=== PATIENT | male | born 1960 | race Caucasian/White ===

== ENCOUNTER 2016-06-09 07:47 | Outpatient (CLI) | payer OTHER, MEDICARE ==
--- NOTE | 2016-06-09 09:13 | RAD ---
TWO VIEW CHEST: Comparison: 10-08-15 Clinical history: Pneumonia. FINDINGS: No lobar consolidation, effusion, or pneumothorax. There is mild linear opacification of the right perihilar region. Cardiac silhouette is within normal limits in size. IMPRESSION: No lobar consolidation. Linear density of the right perihilar region. This could relate to an area of parenchymal volume loss or superimposition of structures. POS: [facility]
== END 2016-06-09 07:48 | disposition home or self-care (01) ==
LOC: MADRAD 07:47
PROVIDERS: ATTEND Family Medicine
DX: J18.9 Pneumonia, unspecified organism (principal)
CPT/HCPCS: 71020

== ENCOUNTER 2016-07-12 08:24 | Outpatient (CLI) | payer OTHER, MEDICARE ==
[2016-07-12] MEDS ORDERED: Iopamidol 370 76% 100 ML VIAL ONE (09:13)
--- NOTE | 2016-07-12 11:31 | CT ---
CT OF ABDOMEN AND PELVIS PERFORMED WITH INTRAVENOUS CONTRAST ENHANCEMENT: HISTORY: Abdominal pain and weight loss. COMPARISON: A CT of the chest that was performed 09/12/15. The lung bases show some emphysematous-type change. Small hypodensities within the dome of the live r most likely represent cysts. There are calcified liver granulomas also noted. The spleen is with in normal limits of size. The liver does show a suggestion of some fatty change. The pancreas and gallbladder regions are unremarkable. Right and left adrenal glands and right and left kidneys are normal in size. There is no significan t periaortic or mesenteric adenopathy noted. CT OF PELVIS PERFORMED WITH CONTRAST ENHANCEMENT: No evidence of adenopathy, mass, or free fluid. No inflammatory process. The appendix appears unre markable. It is retrocecal in location. Prostate calcifications are present. There are arthritic changes of the spine. Vertebroplasty changes of L4 are seen. IMPRESSION: 1. Mild fatty change of the liver. Small hypodensities within the liver are statistically most lik corwin small cysts. 2. Vertebroplasty changes of L4. POS: [facility]
== END 2016-07-12 08:25 | disposition home or self-care (01) ==
LOC: MADCT 08:24
PROVIDERS: ATTEND Internal Medicine Gastroenterology
DX: K52.9 Noninfective gastroenteritis and colitis, unspecified (principal); R63.4 Abnormal weight loss; R93.8 Abnormal findings on diagnostic imaging of other specified body structures; K29.70 Gastritis, unspecified, without bleeding
CPT/HCPCS: 74177

== ENCOUNTER 2016-09-06 20:56 | Emergency (ER) | payer OTHER, MEDICARE ==
--- NOTE | 2016-09-06 22:00 | RAD ---
CHEST TWO VIEWS: 09/06/16 HISTORY: Cough. Heart size and mediastinum are within normal limits. The lungs are clear of infiltrates. Lungs appea r mildly hyperexpanded. IMPRESSION: No acute intrathoracic disease. POS: [facility]
== END 2016-09-06 22:35 | disposition home or self-care (01) ==
LOC: MADERS 20:56
DX: J40 Bronchitis, not specified as acute or chronic (principal); E78.5 Hyperlipidemia, unspecified; I10 Essential (primary) hypertension; F17.210 Nicotine dependence, cigarettes, uncomplicated; F17.220 Nicotine dependence, chewing tobacco, uncomplicated
CPT/HCPCS: 71020

== ENCOUNTER 2017-06-22 00:43 | Emergency (ER) | payer OTHER, MEDICARE ==
[2017-06-22] MEDS ORDERED: Sodium Chloride Irrig Solution 250 ML BOT ONE (07:17)
== END 2017-06-22 01:50 | disposition home or self-care (01) ==
LOC: MADERS 00:43
DX: L76.22 Postprocedural hemorrhage of skin and subcutaneous tissue following other procedure (principal); E78.5 Hyperlipidemia, unspecified; G43.909 Migraine, unspecified, not intractable, without status migrainosus; I10 Essential (primary) hypertension; F17.210 Nicotine dependence, cigarettes, uncomplicated; Z79.899 Other long term (current) drug therapy; Z79.82 Long term (current) use of aspirin; Z86.73 Personal history of transient ischemic attack (TIA), and cerebral infarction without residual deficits
CPT/HCPCS: 12001

== ENCOUNTER 2018-02-19 14:38 | Emergency (ER) | payer MEDICARE, OTHER | END 2018-02-19 15:55 | disposition home or self-care (01) | LOC: MADERS 14:38 | DX: S61.011A Laceration without foreign body of right thumb without damage to nail, initial encounter (principal); I10 Essential (primary) hypertension; Z86.73 Personal history of transient ischemic attack (TIA), and cerebral infarction without residual deficits; E78.5 Hyperlipidemia, unspecified; G43.909 Migraine, unspecified, not intractable, without status migrainosus; F17.210 Nicotine dependence, cigarettes, uncomplicated; Z79.899 Other long term (current) drug therapy; Z79.82 Long term (current) use of aspirin; W26.8XXA Contact with other sharp object(s), not elsewhere classified, initial encounter | CPT/HCPCS: 12001; 99406 ==

== ENCOUNTER 2018-07-11 17:25 | Outpatient (CLI) | payer OTHER, MEDICARE ==
--- NOTE | 2018-07-11 18:10 | RAD ---
TWO VIEW CHEST: 07/11/18 HISTORY: Bronchitis. COPD. Lungs are clear. Heart and mediastinum are unremarkable. Vascular markings normal. IMPRESSION: Unremarkable chest. POS: [facility]
== END 2018-07-11 17:26 | disposition home or self-care (01) ==
LOC: MADRAD 17:25
PROVIDERS: ATTEND Family Medicine
DX: J20.9 Acute bronchitis, unspecified (principal)
CPT/HCPCS: 71046

== ENCOUNTER 2018-09-29 18:22 | Emergency (ER) | payer OTHER, MEDICARE ==
[~2018-09-29 18:22] MED LIST: Iopamidol 370 76% 200 ML VIAL ONE; Sodium Chloride 0.9% 100 ML BAG ONE
[2018-09-29 18:49] LABS: #Basophils 0.2 thou/uL (0.0-0.2); #Eosinphils 0.4 thou/uL (0.0-0.7); #Lymphocytes 3.8 thou/uL (1.20-3.40); #Monocytes 0.9 thou/uL (0.11-0.59); #Neutrophils 3.8 thou/uL (1.40-6.50); %Basophils 2.1 % (0.0-1.0); %Eosinophils 4.3 % (0.0-10.0); %Lymphocytes 41.8 % (21.0-51.0); %Monocytes 9.7 % (0.0-10.0); %Neutrophils 42.1 % (42.0-75.0); Hemoglobin 13.9 g/dL (14.0-18.0); Mean Corpuscular HGB CONC 32.3 g/dL (32.0-36.0); Mean Corpuscular Hemoglobin 31.5 pg (27.0-31.0); Mean Corpuscular Volume 97.6 fL (78.0-98.0); Platelet Count 314 thou/uL (130-400); Red Blood Cell (RBC) Count 4.42 mill/uL (4.70-6.10); White Blood Cell (WBC) Count 9.1 thou/uL (4.8-10.8)
--- NOTE | 2018-09-29 18:51 | RAD ---
EXAM: CHEST ONE VIEW HISTORY: Chest pain COMPARISON: 10/24/2017 FINDINGS: The cardiac silhouette and pulmonary vasculature is within normal limits. Lungs remain expanded and c lear. The osseous structures are intact. Vascular calcifications are again seen in the thoracic aorta. IMPRESSION: No acute cardiopulmonary process.
[2018-09-29 19:03] LABS: ALT (SGPT) 14 U/L (8-55); AST (SGOT) 23 U/L (5-34); Alkaline Phosphatase 44 U/L (40-150); Anion Gap 14 mmol/L (10-20); BUN (Urea Nitrogen) 15 mg/dL (8.4-25.7); Bilirubin, Total 0.3 mg/dL (0.2-1.2); Calc. Creatinine Clearance 0 mL/min (70-130); Calcium 9.4 mg/dL (7.8-10.44); Carbon Dioxide 27 mmol/L (22-29); Chloride 103 mmol/L (98-107); Estimated GFR-MDRD Greater than 90; Glucose 83 mg/dL (70-105); Potassium 4.1 mmol/L (3.5-5.1); Sodium 140 mmol/L (136-145)
[2018-09-29] MEDS ORDERED: Nitroglycerin 2% Ointment 1 INCH/1 GM Packet ONE (19:25)
--- NOTE | 2018-09-29 19:58 | CT ---
CTA CHEST WITH CONTRAST: 09/29/18 Multiple axial tomograms obtained through the chest following a pulmonary angio protocol with multipl laisha reconstruction and 3D post processing. INDICATIONS: Chest pain. Shortness of breath. COMPARISON: CT angio of chest dated 09/12/15. FINDINGS: Pulmonary arteries show adequate enhancement. No evidence of pulmonary embolus identified. Thoracic a andres is unremarkable. No evidence of dissection. The lung celaya show chronic lung parenchymal gutierrez e. There are early bullous changes in the lung bases and hyperexpansion. There is no evidence of infi ltrate. There is a nodular density in the posterior right upper lobe adjacent to the pleural surface measuring approximately 6 mm. There is also a 5 to 6 mm nodule in the anterior right mid lung which i s stable from prior exam. This is a stable nodule when compared to the prior study. Review of the mediastinum again shows nonspecific mediastinal and hilar adenopathy. There are calcifi ed right hilar lymph nodes. The adenopathy appears stable from prior exam. Images through the upper abdomen unremarkable. IMPRESSION: 1. No evidence of pulmonary embolus. 2. There are chronic lung parenchymal changes. No evidence of acute infiltrate. Pulmonary nodule s are stable. POS: [facility]
[2018-09-29] MEDS ORDERED: Labetalol HCl 100 MG/20 ML VIAL ONE (20:31)
== END 2018-09-29 21:04 | disposition short-term general hospital (02) ==
LOC: MADERS 18:22
DX: I20.0 Unstable angina (principal); I10 Essential (primary) hypertension; F17.210 Nicotine dependence, cigarettes, uncomplicated; E78.5 Hyperlipidemia, unspecified; Z86.73 Personal history of transient ischemic attack (TIA), and cerebral infarction without residual deficits; G43.909 Migraine, unspecified, not intractable, without status migrainosus; Z79.899 Other long term (current) drug therapy; Z79.82 Long term (current) use of aspirin
CPT/HCPCS: 71045; 71275; 80053; 83880; 84484; 85025; 93005; 96374; J3490

== ENCOUNTER 2018-10-11 07:48 | Outpatient (CLI) | payer OTHER, MEDICARE ==
[2018-10-11 08:19] LABS: Cardiac Risk 2.5 (Less than 4.5)
== END 2018-10-11 07:49 | disposition home or self-care (01) ==
LOC: MADLAB 07:48
PROVIDERS: ATTEND Internal Medicine Cardiovascular Disease
DX: R07.9 Chest pain, unspecified (principal); E78.00 Pure hypercholesterolemia, unspecified
CPT/HCPCS: 36415; 80061

== ENCOUNTER 2019-02-21 14:31 | Outpatient (CLI) | payer OTHER, MEDICARE ==
[2019-02-21 15:03] LABS: Anion Gap 16 mmol/L (10-20); BUN (Urea Nitrogen) 6 mg/dL (8.4-25.7); Calc. Creatinine Clearance 0 mL/min (70-130); Calcium 9.5 mg/dL (7.8-10.44); Carbon Dioxide 25 mmol/L (22-29); Chloride 98 mmol/L (98-107); Estimated GFR-MDRD Greater than 90; Glucose 85 mg/dL (70-105); Potassium 4.5 mmol/L (3.5-5.1); Sodium 134 mmol/L (136-145)
== END 2019-02-21 14:32 | disposition home or self-care (01) ==
LOC: MADLABBHPM 14:31
PROVIDERS: ATTEND Family Medicine
DX: E87.5 Hyperkalemia (principal)
CPT/HCPCS: 36415; 80048

== ENCOUNTER 2019-07-23 17:16 | Emergency (ER) | payer OTHER, MEDICARE ==
[2019-07-23 18:39] LABS: #Basophils 0.2 thou/uL (0.0-0.2); #Eosinphils 0.4 thou/uL (0.0-0.7); #Monocytes 0.9 thou/uL (0.11-0.59); #Neutrophils 2.9 thou/uL (1.40-6.50); %Basophils 2.1 % (0.0-1.0); %Monocytes 12.4 % (0.0-10.0); %Neutrophils 39.5 % (42.0-75.0); Hemoglobin 14.1 g/dL (14.0-18.0); Mean Corpuscular HGB CONC 31.7 g/dL (32.0-36.0); Mean Corpuscular Hemoglobin 31.3 pg (27.0-31.0); Mean Corpuscular Volume 98.8 fL (78.0-98.0); Mean Platelet Volume 6.8 fL (7.4-10.4); Platelet Count 271 thou/uL (130-400); White Blood Cell (WBC) Count 7.4 thou/uL (4.8-10.8)
[2019-07-23 18:53] LABS: ALT (SGPT) 24 U/L (8-55); AST (SGOT) 29 U/L (5-34); Albumin 3.9 g/dL (3.5-5.0); Alkaline Phosphatase 50 U/L (40-110); Anion Gap 13 mmol/L (10-20); BUN (Urea Nitrogen) 9 mg/dL (8.4-25.7); Bilirubin, Total Less than 0.2 mg/dL (0.2-1.2); Calc. Creatinine Clearance 0 mL/min (70-130); Calcium 9.1 mg/dL (7.8-10.44); Carbon Dioxide 27 mmol/L (22-29); Chloride 103 mmol/L (98-107); Estimated GFR-MDRD Greater than 90; Globulin 2.9 g/dL (2.4-3.5); Glucose 93 mg/dL (70-105); Potassium 4.2 mmol/L (3.5-5.1); Protein, Total 6.8 g/dL (6.0-8.3); Sodium 139 mmol/L (136-145)
--- NOTE | 2019-07-23 19:10 | RAD ---
CHEST ONE VIEW: 07/23/19 HISTORY: Cough. COMPARISON: Radiograph . FINDINGS: Mild background lung hyperinflation. Small scattered pulmonary nodules. No pneumothorax. No effusion. No acute osseous abnormality. IMPRESSION: 1. No acute intrathoracic abnormality. 2. Mild background emphysema. POS: [facility]
== END 2019-07-23 20:00 | disposition home or self-care (01) ==
LOC: MADERS 17:16
DX: J06.9 Acute upper respiratory infection, unspecified (principal); R06.2 Wheezing; E78.5 Hyperlipidemia, unspecified; I10 Essential (primary) hypertension; F17.210 Nicotine dependence, cigarettes, uncomplicated; G70.00 Myasthenia gravis without (acute) exacerbation; Z86.73 Personal history of transient ischemic attack (TIA), and cerebral infarction without residual deficits
CPT/HCPCS: 36415; 71045; 80053; 83880; 84484; 85025; 87804; 93005

== ENCOUNTER 2020-09-10 07:56 | Outpatient (CLI) | payer OTHER, MEDICARE | END 2020-09-10 07:57 | disposition home or self-care (01) | LOC: MADRAD 07:56 | PROVIDERS: ATTEND Family Medicine | DX: M77.8 Other enthesopathies, not elsewhere classified (principal) ==

== ENCOUNTER 2020-10-21 08:52 | Emergency (ER) | payer OTHER, MEDICARE ==
[2020-10-21 09:32] LABS: #Basophils 0.2 thou/uL (0.0-0.2); #Eosinphils 0.1 thou/uL (0.0-0.7); #Lymphocytes 2.2 thou/uL (1.20-3.40); #Monocytes 0.8 thou/uL (0.11-0.59); #Neutrophils 4.5 thou/uL (1.40-6.50); %Basophils 2.4 % (0.0-1.0); %Lymphocytes 28.8 % (21.0-51.0); %Monocytes 9.7 % (0.0-10.0); %Neutrophils 58.2 % (42.0-75.0); Hemoglobin 15.7 g/dL (14.0-18.0); Mean Corpuscular HGB CONC 31.7 g/dL (32.0-36.0); Mean Corpuscular Hemoglobin 32.4 pg (27.0-31.0); Mean Corpuscular Volume 102.3 fL (78.0-98.0); Mean Platelet Volume 7.2 fL (7.4-10.4); Platelet Count 249 thou/uL (130-400); RBC Distribution Width 11.2 % (11.5-14.5); Red Blood Cell (RBC) Count 4.85 mill/uL (4.70-6.10); White Blood Cell (WBC) Count 7.7 thou/uL (4.8-10.8)
[2020-10-21] MEDS ORDERED: Morphine 2 MG/ML VIAL ONE (09:34)
[2020-10-21] MEDS ORDERED: Nitroglycerin 2% Ointment 1 INCH/1 GM Packet ONE (09:35)
[2020-10-21] MEDS ORDERED: Sodium Chloride 0.9% 1,000 ML ONE ×2 (09:35→10:39)
[2020-10-21] MEDS ORDERED: Famotidine In NaCl 20 mg/50 ml Premix Bag ONE (09:35)
[2020-10-21] MEDS ORDERED: Aspirin Chewable 81 MG TAB ONE (09:35)
[2020-10-21] MEDS ORDERED: Promethazine HCl 25 MG/ML VIAL ONE (09:35)
[2020-10-21 09:46] LABS: ALT (SGPT) 28 U/L (8-55); AST (SGOT) 39 U/L (5-34); Albumin 4.2 g/dL (3.4-4.8); Alkaline Phosphatase 53 U/L (40-110); Anion Gap 17 mmol/L (10-20); BUN (Urea Nitrogen) 6 mg/dL (8.4-25.7); Bilirubin, Total 0.5 mg/dL (0.2-1.2); Calc. Creatinine Clearance 0 mL/min (70-130); Calcium 9.5 mg/dL (7.8-10.44); Carbon Dioxide 25 mmol/L (23-31); Chloride 98 mmol/L (98-107); Globulin 3.1 g/dL (2.4-3.5); Glucose 97 mg/dL (80-115); Lipase 15 U/L (8-78); Potassium 4.9 mmol/L (3.5-5.1); Protein, Total 7.3 g/dL (5.8-8.1); Sodium 135 mmol/L (136-145)
[2020-10-21] MEDS ORDERED: Iopamidol 370 76% 125 ML VIAL FS ONE (11:58)
== END 2020-10-21 11:25 | disposition home or self-care (01) ==
LOC: MADERS 08:52
DX: R07.81 Pleurodynia (principal); R07.89 Other chest pain; E78.5 Hyperlipidemia, unspecified; G43.809 Other migraine, not intractable, without status migrainosus; F17.210 Nicotine dependence, cigarettes, uncomplicated; Z86.73 Personal history of transient ischemic attack (TIA), and cerebral infarction without residual deficits; Z79.82 Long term (current) use of aspirin; Z79.899 Other long term (current) drug therapy
CPT/HCPCS: 71045; 71275; 80053; 83690; 84484; 85025; 85379; 93005; 96365; 96368; 96375; J2270; J2550; J7050; Q9967

== ENCOUNTER 2020-11-02 09:17 | Outpatient (CLI) | payer OTHER, MEDICARE | END 2020-11-02 09:18 | disposition home or self-care (01) | LOC: MADULT 09:17 | PROVIDERS: ATTEND Family Medicine | DX: R10.11 Right upper quadrant pain (principal); K76.0 Fatty (change of) liver, not elsewhere classified | CPT/HCPCS: 76705 ==

== ENCOUNTER 2021-12-14 05:39 | Outpatient (CLI) | payer BC, MEDICARE | END 2021-12-14 05:40 | disposition home or self-care (01) | LOC: MADCT 05:39 | PROVIDERS: ATTEND Family Medicine | DX: Z72.0 Tobacco use (principal); J44.9 Chronic obstructive pulmonary disease, unspecified; R91.8 Other nonspecific abnormal finding of lung field; D71 Functional disorders of polymorphonuclear neutrophils; K76.9 Liver disease, unspecified | CPT/HCPCS: 71250 ==

== ENCOUNTER 2022-03-09 14:52 | Outpatient (CLI) | payer BC, MEDICARE | END 2022-03-09 14:53 | disposition home or self-care (01) | LOC: MADLAB 14:52 | PROVIDERS: ATTEND Family Medicine | DX: J44.9 Chronic obstructive pulmonary disease, unspecified (principal); R05.3 Chronic cough | CPT/HCPCS: 71046 ==

== ENCOUNTER 2022-06-20 08:17 | Emergency (ER) | payer BC, MEDICARE ==
[2022-06-20] MEDS ORDERED: Lactated Ringer's 1,000 ML ONE (08:55)
[2022-06-20] MEDS ORDERED: Aspirin 325 MG TAB ONE (09:19)
[2022-06-20] MEDS ORDERED: Acetaminophen 325 MG TAB ONE (09:19)
[2022-06-20 09:25] LABS: #Basophils 0.1 thou/uL (0.0-0.2); #Eosinphils 0.1 thou/uL (0.0-0.7); #Lymphocytes 1.6 thou/uL (1.20-3.40); #Monocytes 0.9 thou/uL (0.11-0.59); #Neutrophils 7.1 thou/uL (1.40-6.50); %Basophils 0.9 % (0.0-1.0); %Eosinophils 1.2 % (0.0-10.0); %Lymphocytes 16.5 % (21.0-51.0); %Monocytes 8.9 % (0.0-10.0); %Neutrophils 72.5 % (42.0-75.0); Hemoglobin 15.2 g/dL (14.0-18.0); Mean Corpuscular HGB CONC 34.2 g/dL (32.0-36.0); Mean Corpuscular Hemoglobin 32.8 pg (27.0-31.0); Mean Platelet Volume 7.1 fL (7.4-10.4); Platelet Count 203 10x3/uL (130-400); RBC Distribution Width 11.2 % (11.5-14.5); Red Blood Cell (RBC) Count 4.65 mill/uL (4.70-6.10); White Blood Cell (WBC) Count 9.8 10x3/uL (4.8-10.8)
[2022-06-20 09:32] LABS: Prothrombin Time 13.3 sec (12.0-14.7)
[2022-06-20 09:33] LABS: PTT 30.8 sec (22.9-36.1)
[2022-06-20 09:35] LABS: D-Dimer Test 0.55 *mcg/mL (0.27-0.43)
[2022-06-20 09:37] LABS: ALT (SGPT) 19 U/L (8-55); AST (SGOT) 26 U/L (5-34); Albumin 3.9 g/dL (3.4-4.8); Alkaline Phosphatase 53 U/L (40-110); Anion Gap 13 mmol/L (10-20); BUN (Urea Nitrogen) 7 mg/dL (8.4-25.7); Bilirubin, Total 0.6 mg/dL (0.2-1.2); Calc. Creatinine Clearance 0 mL/min (70-130); Calcium 9.3 mg/dL (7.8-10.44); Carbon Dioxide 29 mmol/L (23-31); Chloride 96 mmol/L (98-107); Estimated GFR 84; Globulin 2.9 g/dL (2.4-3.5); Glucose 105 mg/dL (80-115); Lipase 17 U/L (8-78); Magnesium 2.1 mg/dL (1.6-2.6); Potassium 4.9 mmol/L (3.5-5.1); Protein, Total 6.8 g/dL (5.8-8.1); Sodium 133 mmol/L (136-145)
[2022-06-20] MEDS ORDERED: Iopamidol 370 76% 125 ML VIAL FS ONE (12:30)
[2022-06-20] MEDS ORDERED: Sodium Chloride 0.9% 100 ML BAG ONE (12:30)
[2022-06-20 13:34] LABS: Base Excess-Venous 1.9 mmol/L (-2.0 to 3.0); Bicarbonate (HCO3v) 25.7 mmol/L (22.0-28.0); vO2 Saturation-calc 99.8 % (60.0-85.0)
[2022-06-20 13:35] LABS: Hemoglobin - Calc 16.3 g/dL (14.0-18.0)
[2022-06-20 13:36] LABS: Calcium, Ionized 1.08 mmol/L (1.15-1.33); Chloride 97 mmol/L (98-107); T. Carbon Dioxide 26.8 mmol/L (22.0-28.0)
[2022-06-20 13:37] LABS: Sodium 134 mmol/L (138-145)
[2022-06-20 13:38] LABS: Potassium 4.6 mmol/L (3.5-5.1)
== END 2022-06-20 10:09 | disposition short-term general hospital (02) ==
LOC: MADERS 08:17
DX: U07.1 COVID-19 (principal); G70.01 Myasthenia gravis with (acute) exacerbation; R07.89 Other chest pain; I10 Essential (primary) hypertension; E78.00 Pure hypercholesterolemia, unspecified; F17.210 Nicotine dependence, cigarettes, uncomplicated; Z86.73 Personal history of transient ischemic attack (TIA), and cerebral infarction without residual deficits; Z79.899 Other long term (current) drug therapy
CPT/HCPCS: 71045; 71275; 74177; 80053; 82330; 82803; 83605; 83690; 83735; 84484; 85025; 85379; 85610; 85730; 87040; 93005; 94760; 96361; 96374; J1956; J7120; Q9967

== ENCOUNTER 2023-03-11 10:53 | Emergency (ER) | payer BC, MEDICARE ==
[2023-03-11 12:14] LABS: #Basophils 0.2 thou/uL (0.0-0.2); #Lymphocytes 2.6 thou/uL (1.20-3.40); #Monocytes 0.9 thou/uL (0.11-0.59); #Neutrophils 6.6 thou/uL (1.40-6.50); %Basophils 1.6 % (0.0-1.0); %Eosinophils 0.1 % (0.0-10.0); %Lymphocytes 25.5 % (21.0-51.0); %Neutrophils 63.9 % (42.0-75.0); Anisocytosis SLIGHT = 6-15 cells (100X) (0-5/hpf); Hematocrit 49.2 % (42.0-52.0); Hemoglobin 15.8 g/dL (14.0-18.0); MDiff Complete? YES; Macrocytosis SLIGHT = 6-15 cells (100X) (0-5/hpf); Mean Corpuscular HGB CONC 32.1 g/dL (32.0-36.0); Mean Corpuscular Hemoglobin 33.9 pg (27.0-31.0); Mean Corpuscular Volume 105.7 fl (78.0-98.0); Mean Platelet Volume 6.9 fL (7.4-10.4); Platelet Adequacy Comment Appears Adequate; Platelet Count 244 10x3/uL (130-400); RBC Distribution Width 12.3 % (11.5-14.5); Red Blood Cell (RBC) Count 4.66 mill/uL (4.70-6.10); White Blood Cell (WBC) Count 10.3 10x3/uL (4.8-10.8)
[2023-03-11 12:16] LABS: ALT (SGPT) 14 U/L (8-55); AST (SGOT) 16 U/L (5-34); Albumin 3.6 g/dL (3.4-4.8); Alkaline Phosphatase 38 U/L (40-110); Anion Gap 16 mmol/L (10-20); BUN (Urea Nitrogen) 7 mg/dL (8.4-25.7); Bilirubin, Total 0.6 mg/dL (0.2-1.2); Calc. Creatinine Clearance 0 mL/min (70-130); Calcium 9.5 mg/dL (7.8-10.44); Carbon Dioxide 29 mmol/L (23-31); Chloride 97 mmol/L (98-107); Estimated GFR 86; Globulin 2.7 g/dL (2.4-3.5); Glucose 93 mg/dL (80-115); Potassium 4.7 mmol/L (3.5-5.1); Protein, Total 6.3 g/dL (5.8-8.1); Sodium 137 mmol/L (136-145)
[2023-03-11] MEDS ORDERED: Ipratropium/Albuterol 3 ML NEB ONE (12:27)
[2023-03-11 12:35] LABS: Prothrombin Time 13.1 sec (12.0-14.7)
[2023-03-11 12:36] LABS: PTT 24.7 sec (22.9-36.1)
[2023-03-11 13:30] LABS: Bilirubin Negative (Negative); Blood, Urine Negative (Negative); Clarity Clear (Clear); Glucose, Urine (Dipstick) Negative (Negative); Ketone, Urine Negative (Negative); Leukocyte Negative (Negative); Nitrite Negative (Negative); Protein, Urine (Dipstick) Negative (Neg-Trace); Specific Gravity, Urine 1.015 (1.005-1.030); Urobilinogen 0.2 mg/dL (Less than 2)
[2023-03-11 13:31] LABS: CAUTI Indications for Culture Pelvic or flank pain
[2023-03-11 13:37] LABS: RBC/HPF 0-3 HPF (0-3); Squamous Epithelial None Seen HPF (0-3); WBC/HPF None Seen HPF (0-3)
[2023-03-11 13:38] LABS: Bacteria/HPF Rare-Few HPF (None Seen); Urine Culture Reflex No No
== END 2023-03-11 13:52 | disposition home or self-care (01) ==
LOC: MADERS 10:53
DX: J44.9 Chronic obstructive pulmonary disease, unspecified (principal); T38.0X5A Adverse effect of glucocorticoids and synthetic analogues, initial encounter; I10 Essential (primary) hypertension; F17.210 Nicotine dependence, cigarettes, uncomplicated; Z79.51 Long term (current) use of inhaled steroids
CPT/HCPCS: 71046; 80053; 81001; 83880; 84484; 85025; 85610; 85730; 93005; 94760; J7620

== ENCOUNTER 2023-07-07 09:29 | Outpatient (CLI) | payer BC, MEDICARE | END 2023-07-07 09:30 | disposition home or self-care (01) | LOC: MADRAD 09:29 | PROVIDERS: ATTEND Family Medicine | DX: R05.3 Chronic cough (principal); J44.9 Chronic obstructive pulmonary disease, unspecified | CPT/HCPCS: 71046 ==

== ENCOUNTER 2023-10-04 10:21 | Emergency (ER) | payer BC, MEDICARE ==
[~2023-10-04 10:21] MED LIST changes: +Iopamidol 370 76% 100 ML VIAL ONE; -Iopamidol 370 76% 200 ML VIAL ONE; -Sodium Chloride 0.9% 100 ML BAG ONE
[2023-10-04] MEDS ORDERED: Ondansetron ODT 4 MG TAB ONE (11:03)
[2023-10-04] MEDS ORDERED: Lactated Ringer's 2,000 ML ONE (11:03)
[2023-10-04] MEDS ORDERED: Dicyclomine 20 MG/2 ML VIAL ONE (11:03)
[2023-10-04 11:16] LABS: Prothrombin Time 13.1 sec (12.0-14.7)
[2023-10-04 11:17] LABS: PTT 26.6 sec (22.9-36.1)
[2023-10-04 11:24] LABS: #Basophils 0.1 thou/uL (0.0-0.2); #Eosinphils 0.1 thou/uL (0.0-0.7); #Lymphocytes 2.5 thou/uL (1.20-3.40); #Monocytes 0.8 thou/uL (0.11-0.59); #Neutrophils 3.7 thou/uL (1.40-6.50); %Basophils 1.6 % (0.0-1.0); %Monocytes 10.7 % (0.0-10.0); %Neutrophils 51.7 % (42.0-75.0); ALT (SGPT) 43 U/L (8-55); AST (SGOT) 74 U/L (5-34); Albumin 3.8 g/dL (3.4-4.8); Alkaline Phosphatase 63 U/L (40-110); Anion Gap 18 mmol/L (10-20); Anisocytosis SLIGHT = 6-15 cells (100X) (0-5/hpf); BUN (Urea Nitrogen) 5 mg/dL (8.4-25.7); Bilirubin, Total 1.1 mg/dL (0.2-1.2); CK (CPK) 53 U/L (30-200); Calc. Creatinine Clearance 0 mL/min (70-130); Calcium 9.2 mg/dL (7.8-10.44); Carbon Dioxide 25 mmol/L (23-31); Chloride 96 mmol/L (98-107); Estimated GFR 89; Glucose 92 mg/dL (80-115); Hematocrit 53.2 % (42.0-52.0); Hemoglobin 15.7 g/dL (14.0-18.0); Hypochromia SLIGHT = 6-15 cells (100X) (0-5/hpf); Lipase 17 U/L (8-78); MDiff Complete? YES; Magnesium 2.1 mg/dL (1.6-2.6); Mean Corpuscular HGB CONC 29.4 g/dL (32.0-36.0); Mean Corpuscular Volume 101.9 fl (78.0-98.0); Mean Platelet Volume 6.5 fL (7.4-10.4); Platelet Adequacy Comment Appears Adequate; Platelet Count 262 10x3/uL (130-400); Protein, Total 6.8 g/dL (5.8-8.1); RBC Distribution Width 12.4 % (11.5-14.5); Red Blood Cell (RBC) Count 5.22 mill/uL (4.70-6.10); Sodium 134 mmol/L (136-145); White Blood Cell (WBC) Count 7.2 10x3/uL (4.8-10.8)
[2023-10-04] MEDS ORDERED: diphenhydrAMINE 50 MG/ML VIAL ONE (11:51)
[2023-10-04] MEDS ORDERED: methylPREDNISolone Sod Succ/PF 125 MG/2 ML VIAL ONE (11:51)
[2023-10-04] MEDS ORDERED: Ipratropium/Albuterol 3 ML NEB ONE (11:52)
[2023-10-04] MEDS ORDERED: Famotidine/PF 20 mg/2ml Vial ONE (12:17)
[2023-10-04] MEDS ORDERED: Azithromycin 500 MG VIAL ONE (12:38)
[2023-10-04] MEDS ORDERED: Sodium Chloride 0.9% 250 ML 250 ML ONE (12:38)
[2023-10-04 13:18] LABS: Bilirubin Negative (Negative); Blood, Urine Negative (Negative); Clarity Clear (Clear); Glucose, Urine (Dipstick) Negative (Negative); Ketone, Urine Trace mg/dL (Negative); Leukocyte Negative (Negative); Nitrite Negative (Negative); Protein, Urine (Dipstick) Negative (Neg-Trace); Urobilinogen 0.2 mg/dL (Less than 2)
[2023-10-04 13:21] LABS: Bacteria/HPF Rare-Few HPF (None Seen); CAUTI Indications for Culture Dysuria,urgency,freq; RBC/HPF 0-3 HPF (0-3); Squamous Epithelial 0-3 HPF (0-3); Urine Culture Reflex No No; WBC/HPF None Seen HPF (0-3)
== END 2023-10-04 14:25 | disposition home or self-care (01) ==
LOC: MADERS 10:21
DX: K52.9 Noninfective gastroenteritis and colitis, unspecified (principal); R74.01 Elevation of levels of liver transaminase levels; T50.8X5A Adverse effect of diagnostic agents, initial encounter; D75.89 Other specified diseases of blood and blood-forming organs; F17.210 Nicotine dependence, cigarettes, uncomplicated; Z79.899 Other long term (current) drug therapy
CPT/HCPCS: 71045; 74177; 80053; 81001; 82550; 83605; 83690; 83735; 84443; 85025; 85610; 85730; 87040; 93005; 94760; 96361; 96365; 96372; 96375; J0456; J1200; J2930; J7050; J7120; J7620; Q0162; Q9967; S0028